=== PATIENT | female | born 1970 | race Two or more races ===

== ENCOUNTER 2017-11-18 14:09 | Outpatient (CLI) | payer OTHER | END 2017-11-18 14:16 | disposition home or self-care (01) | LOC: NUCLEAR 14:09 | DX: M85.89 Other specified disorders of bone density and structure, multiple sites (principal) ==

== ENCOUNTER 2018-04-02 12:41 | Emergency (ER) | payer OTHER ==
[~2018-04-02] VITALS: Ht 157.5 cm; Wt 63.5 kg
[2018-04-02] MEDS ORDERED: KETO10TA2 PO (17:41)
== END 2018-04-02 18:46 | disposition home or self-care (01) ==
LOC: ER 12:41
DX: N20.0 Calculus of kidney (principal); R10.31 Right lower quadrant pain

== ENCOUNTER 2019-01-05 08:09 | Outpatient (CLI) | payer OTHER ==
[~2019-01-05 08:09] MED LIST: KETO10TA2 PO
== END 2019-01-05 08:12 | disposition home or self-care (01) ==
LOC: MAMO-SONO 08:09
DX: Z12.31 Encounter for screening mammogram for malignant neoplasm of breast (principal); Z12.39 Encounter for other screening for malignant neoplasm of breast; Z00.00 Encounter for general adult medical examination without abnormal findings; N64.4 Mastodynia; N60.19 Diffuse cystic mastopathy of unspecified breast

== ENCOUNTER 2020-04-04 13:21 | Outpatient (CLI) | payer OTHER | END 2020-04-04 15:32 | disposition home or self-care (01) | LOC: NUCLEAR 13:21 | PROVIDERS: ATTEND Internal Medicine Sports Medicine | DX: M85.89 Other specified disorders of bone density and structure, multiple sites (principal) ==